=== PATIENT | female | born 1945 | race Caucasian/White ===

== ENCOUNTER 2018-04-21 11:05 | Emergency (ER) | payer MEDICARE ==
[~2018-04-21] VITALS: Ht 157.5 cm; Wt 67.6 kg
[2018-04-21] MEDS ORDERED: NAPR500 PO (11:16)
[2018-04-21] MEDS ORDERED: Wheelchair1 EACH UD (14:32)
[2018-04-21] MEDS ORDERED: Norco 5-325 Ta1 EACH PO (14:32)
[2018-04-24] MEDS ORDERED: Percocet 5-3251 EACH PO (18:20)
[2018-04-24] MEDS ORDERED: ASPI325EC PO (18:21)
== END 2018-04-21 14:54 | disposition home or self-care (01) ==
LOC: ER 11:05
DX: S52.502A Unspecified fracture of the lower end of left radius, initial encounter for closed fracture (principal); S82.042A Displaced comminuted fracture of left patella, initial encounter for closed fracture; W17.89XA Other fall from one level to another, initial encounter; Z79.899 Other long term (current) drug therapy
CPT/HCPCS: 36415; 73100; 73110; 73200; 73560-LT; J2405; J3010; J7030

== ENCOUNTER 2024-12-16 17:22 | Emergency (ER) | payer MEDICARE ==
[~2024-12-16] VITALS: Ht 160 cm; Wt 70.8 kg
[~2024-12-16 17:22] MED LIST: ASPI325EC PO; NAPR500 PO; Norco 5-325 Ta1 EACH PO; Percocet 5-3251 EACH PO; Wheelchair1 EACH UD
[2024-12-16] MEDS ORDERED: HYDROmorphone HCl/Pf 1MG SYR IV ONE (17:50)
[2024-12-16] MEDS ORDERED: Ketorolac Tromethamine 15mg Vial IV ONE (17:50)
[2024-12-16] MEDS ORDERED: Propofol 10mg/ml 20 ml Vial (Procedural) IV SCH (19:55)
[2024-12-16] MEDS ORDERED: NS 1,000 ML IV SCH (19:55)
[2024-12-16 21:15] VITALS: BP 172/75
[2024-12-16] MEDS ORDERED: Roxicodone5 MG PO (21:18)
[2024-12-16] MEDS ORDERED: Acetaminophen 500 MG Tab PO ONE (21:20)
[2024-12-16] MEDS ORDERED: RX Prepack 6 Tabs Oxycodone 5mg UD ONE (21:20)
== END 2024-12-16 21:33 | disposition home or self-care (01) ==
LOC: ER 17:22
DX: S52.501A Unspecified fracture of the lower end of right radius, initial encounter for closed fracture (principal); M25.531 Pain in right wrist; Z79.82 Long term (current) use of aspirin; W18.30XA Fall on same level, unspecified, initial encounter
CPT/HCPCS: 25605; 73110; 76000; 96374-59; 96375-59; 99152; 99283-25; A9270; J1171; J1885; J2704; J7030

== ENCOUNTER 2024-12-24 06:12 | Day surgery (SDC) | payer MEDICARE ==
[~2024-12-24] VITALS: Ht 160 cm; Wt 73.1 kg
[~2024-12-24 06:12] MED LIST changes: +Lactated Ringer's 1,000 ML ONE; +Roxicodone5 MG PO
[2024-12-24] MEDS ORDERED: Lactated Ringer's 1,000 ML IV ONE ×3 (06:36→09:59)
[2024-12-24] MEDS ORDERED: IBUP200 PO (06:37)
[2024-12-24] MEDS ORDERED: IBUP600 PO (06:37)
[2024-12-24] MEDS ORDERED: CeFAZolin Sodium 2,000 MG VIAL ONE (06:39)
--- NOTE | 2024-12-24 07:30 | NUR ---
12/24/24 0730 Yolie Wheeler CMP DRAWN ON 12/20/2024 SHOWED POTASSIUM LEVEL 2.5 ON THAT DAY. PT HAS NOT HAD POTASSIUM LEVEL RECHECKED SINCE THEN SO BLOOD WAS DRAWN DURING IV DRAWN AND SENT TO LAB FOR STAT K+ LEVEL. DR THAPA AND DR STINSON AWARE.
[2024-12-24] MEDS ORDERED: propofoL 20 ML IV ONE (07:36)
[2024-12-24] MEDS ORDERED: FentaNYL Citrate 50 MCG/ML 2 ML Injection ONE (07:36)
[2024-12-24] MEDS ORDERED: Dexamethasone Sod Phos 10 MG/ML 1ML VIAL ONE ×2 (07:51→09:22)
[2024-12-24] MEDS ORDERED: Ketorolac Tromethamine 30mg Vial ONE (07:52)
[2024-12-24] MEDS ORDERED: HYDROmorphone HCl/Pf 1MG SYR ONE (08:04)
[2024-12-24] MEDS ORDERED: Ondansetron HCl 2 MG / ML 2ML Vial ONE (08:31)
[2024-12-24] MEDS ORDERED: Lidocaine 1%-Epineph 1:100000 20 ML MDV ONE (09:32)
--- NOTE | 2024-12-24 09:58 | NUR ---
12/24/24 0958 Sai José PT REPORTED 10/10 AT PAIN PACU ADMISSION.DR ALVARADO PERFORMED POST-OP NERVE BLOCK. TIME OUT AT BEDSIDE WITH DR THAPA AT 0934. NERVE BLOCK START TIME 09, END TIME AT 0945. PT ON O2 10LPM VIA FACE TENT. PT NOW REPORTS PAIN AT 4/10 TO RIGHT HAND.
[2024-12-24] MEDS ORDERED: OxyCODONE 5 mg/Acetamin 325 mg TABLET ONE (11:38)
[2024-12-24 11:43] VITALS: BP 161/64
== END 2024-12-24 12:00 | disposition home or self-care (01) ==
LOC: ORSCSDS 06:12
PROVIDERS: Orthopaedic Surgery
PROC: 0PSH04Z Reposition Right Radius with Internal Fixation Device, Open Approach (ICD-10-PCS; principal; 2024-12-24 07:30)
DX: S52.571A Other intraarticular fracture of lower end of right radius, initial encounter for closed fracture (principal); I10 Essential (primary) hypertension; Z79.899 Other long term (current) drug therapy
CPT/HCPCS: 73100; 84132; A9270; C1713; J0690; J1100; J1171; J1885; J2405; J2704; J3010; J7120